=== PATIENT | male | born 1995 | race Caucasian/White ===

== ENCOUNTER 2016-04-06 11:50 | Emergency (ER) | payer OTHER ==
[~2016-04-06] VITALS: Ht 177.8 cm; Wt 90.0 kg
[2016-04-06] MEDS ORDERED: SODIUM CHLORIDE 0.9% 1,000 ML IV ONE ×2 (12:12)
[2016-04-06 12:25] VITALS: BP 124/75
[2016-04-06] MEDS ORDERED: ONDANSETRON HCL 4MG/2ML VIAL IV ONE (12:30)
[2016-04-06] MEDS ORDERED: PANTOPRAZOLE SODIUM 40 MG/VIAL IV ONE (12:30)
== END 2016-04-06 13:32 | disposition designated cancer center or children's hospital, planned readmission (85) ==
LOC: ER 12:25
DX: K20.9 Esophagitis, unspecified (principal)
CPT/HCPCS: 93005; 96374; 96375; 99285; C9113; J2405; J7030; Z7610